=== PATIENT | female | born 1985 | race Caucasian/White ===

== ENCOUNTER 2017-01-01 11:53 | Emergency (ER) | payer MEDICAID ==
[~2017-01-01] VITALS: Ht 175.3 cm; Wt 86.9 kg
[2017-01-01 12:15] VITALS: BP 121/73
[2017-01-01] MEDS ORDERED: ACETAMINOPHEN 500 MG TABLET ONE (12:49)
[2017-01-01] MEDS ORDERED: ACETAMINOPHEN 500 MG TABLET PO ONE (13:00)
[2017-01-01] MEDS ORDERED: KETOROLAC 30 MG/1 ML ONE (13:50)
[2017-01-01] MEDS ORDERED: DIAZEPAM 5 MG TABLET ONE (13:50)
[2017-01-01] MEDS ORDERED: KETOROLAC 30 MG/1 ML IM ONE (14:00)
[2017-01-01] MEDS ORDERED: DIAZEPAM 5 MG TABLET PO ONE (14:00)
== END 2017-01-01 14:13 | disposition home or self-care (01) ==
LOC: ED 14:07
DX: S39.012A Strain of muscle, fascia and tendon of lower back, initial encounter (principal); I10 Essential (primary) hypertension; X50.9XXA Other and unspecified overexertion or strenuous movements or postures, initial encounter; Y93.89 Activity, other specified; Y92.89 Other specified places as the place of occurrence of the external cause; Y99.8 Other external cause status; Z88.6 Allergy status to analgesic agent; Z88.1 Allergy status to other antibiotic agents
CPT/HCPCS: 36415; 84703; 99283

== ENCOUNTER 2018-05-22 18:27 | Emergency (ER) | payer MEDICAID ==
[~2018-05-22] VITALS: Ht 175.3 cm; Wt 76.5 kg
[2018-05-22] MEDS ORDERED: ACETAMINOPHEN 500 MG TABLET ONE (19:10)
[2018-05-22 19:23] LABS: BASOPHILS # (AUTO) 0.04 x10^3/uL (0-0.1); BASOPHILS % (AUTO) 1 % (0-1); EOSINOPHILS % (AUTO) 3 % (1-7); LYMPHOCYTES # (AUTO) 2.09 x10^3/uL (1-3.4); LYMPHOCYTES % (AUTO) 35 % (22-44); MD NO; MEAN CORPUSCULAR HEMOGLOBIN 29.6 pg (27.0-34.8); MEAN CORPUSCULAR HGB CONC 33.5 g/dL (32.4-35.8); MEAN CORPUSCULAR VOLUME 88.4 fL (80-100); MEAN PLATELET VOLUME 7.5 fL (7.4-10.4); MONOCYTES # (AUTO) 0.57 x10^3/uL (0.2-0.8); MONOCYTES % (AUTO) 9 % (2-9); NEUTROPHILS # (AUTO) 3.15 x10^3/uL (1.8-6.8); NEUTROPHILS % (AUTO) 52 % (42-75); PLATELET COUNT 305 x10^3/uL (130-400); RED BLOOD COUNT 4.21 x10^6/uL (3.82-5.3); RED CELL DISTRIBUTION WIDTH 15.3 % (9.6-15.2)
[2018-05-22] MEDS ORDERED: ACETAMINOPHEN 500 MG TABLET PO ONE (19:30)
[2018-05-22 19:35] LABS: ALANINE AMINOTRANSFERASE 16 U/L (12-78); ALBUMIN 3.2 g/dL (3.4-5.0); ANION GAP 6 mmol/L (5-15); CALCIUM 7.7 mg/dL (8.5-10.1); CHLORIDE 112 mmol/L (98-107); CREATININE 0.79 mg/dL (0.55-1.02)
[2018-05-22 19:37] LABS: MICROSCOPIC NOT IND
[2018-05-22 19:39] LABS: ALKALINE PHOSPHATASE 68 U/L (45-117); BILIRUBIN,TOTAL 0.3 mg/dL (0.2-1.0); TOTAL PROTEIN 6.2 g/dL (6.4-8.2)
[2018-05-22 19:41] LABS: CULTURE INDICATED? NO
[2018-05-22 20:08] VITALS: BP 112/65
== END 2018-05-22 20:12 | disposition home or self-care (01) ==
LOC: ED 20:08
DX: R10.11 Right upper quadrant pain (principal); R10.31 Right lower quadrant pain; K08.89 Other specified disorders of teeth and supporting structures; H92.02 Otalgia, left ear; I10 Essential (primary) hypertension; F17.200 Nicotine dependence, unspecified, uncomplicated; J45.909 Unspecified asthma, uncomplicated; Z88.5 Allergy status to narcotic agent; Z88.2 Allergy status to sulfonamides
CPT/HCPCS: 36415; 80053; 81003; 84703; 85025; 99284

== ENCOUNTER 2020-05-13 16:36 | Emergency (ER) | payer MEDICAID ==
[~2020-05-13] VITALS: Ht 175.3 cm; Wt 77.3 kg
[2020-05-13 17:43] LABS: HCG UR SG 1.028 (1.003-1.030)
[2020-05-13 17:45] LABS: MICROSCOPIC INDICATED
[2020-05-13 18:33] LABS: CLUE CELLS NONE SEEN (NONE SEEN); WET PREP WBCS MODERATE (FEW)
[2020-05-13 18:46] VITALS: BP 139/90
[2020-05-13] MEDS ORDERED: metroNIDAZOLE 500 MG TABLET ONE (18:47)
[2020-05-13] MEDS ORDERED: metroNIDAZOLE 500 MG TABLET PO ONE (19:00)
== END 2020-05-13 19:43 | disposition home or self-care (01) ==
LOC: ED 19:15
DX: N89.8 Other specified noninflammatory disorders of vagina (principal); A59.01 Trichomonal vulvovaginitis; I10 Essential (primary) hypertension; J45.909 Unspecified asthma, uncomplicated; F17.200 Nicotine dependence, unspecified, uncomplicated
CPT/HCPCS: 81001; 81025; 87086; 87147; 87210; 87491; 87591; 87808; 99283; 99284

== ENCOUNTER 2020-07-07 01:40 | Emergency (ER) | payer MEDICAID ==
[~2020-07-07] VITALS: Ht 175.3 cm; Wt 79.4 kg
--- NOTE | 2020-07-07 02:21 | NUR ---
WALKS TO ROOM, UNDRESSING. NAD.
[2020-07-07] MEDS ORDERED: AZITHROMYCIN 500 MG TABLET PO ONE (03:00)
[2020-07-07] MEDS ORDERED: CEFTRIAXONE 250 MG IM ONE (03:00)
[2020-07-07] MEDS ORDERED: HYDROcodone/APAP 5/325 TABLET PO ONE (03:00)
[2020-07-07] MEDS ORDERED: AZITHROMYCIN 500 MG TABLET ONE (03:02)
[2020-07-07] MEDS ORDERED: CEFTRIAXONE 250 MG ONE (03:02)
[2020-07-07] MEDS ORDERED: HYDROcodone/APAP 5/325 TABLET ONE (03:03)
--- NOTE | 2020-07-07 03:34 | NUR ---
PT DRESSED, WAITING FOR DISPO PAPERS.
[2020-07-07 03:47] LABS: MICROSCOPIC INDICATED
[2020-07-07 03:52] LABS: HCG UR SG 1.026 (1.003-1.030)
--- NOTE | 2020-07-07 03:56 | NUR ---
WAITING FOR DISPO.
[2020-07-07 04:05] LABS: CLUE CELLS NONE SEEN (NONE SEEN); WET PREP WBCS MODERATE (FEW)
[2020-07-07 04:22] VITALS: BP 122/71
== END 2020-07-07 04:36 | disposition home or self-care (01) ==
LOC: ED 02:13
DX: N30.00 Acute cystitis without hematuria (principal); A59.01 Trichomonal vulvovaginitis; J45.909 Unspecified asthma, uncomplicated; I10 Essential (primary) hypertension; F17.210 Nicotine dependence, cigarettes, uncomplicated
CPT/HCPCS: 81001; 81025; 87086; 87210; 87491; 87591; 87808; 96372; 99284; 99406; J0696; 99283

== ENCOUNTER 2021-01-05 21:09 | Emergency (ER) | payer MEDICAID ==
[~2021-01-05] VITALS: Ht 175.3 cm; Wt 80.0 kg
[2021-01-05] MEDS ORDERED: SODIUM CHLORIDE FLUSH 10ML SYR IVF ONE (21:30)
[2021-01-05 21:39] LABS: BASOPHILS % (AUTO) 1 % (0-1); EOSINOPHILS % (AUTO) 1 % (1-7); LYMPHOCYTES % (AUTO) 13 % (22-44); MEAN CORPUSCULAR HEMOGLOBIN 28.1 pg (27.0-34.8); MEAN CORPUSCULAR HGB CONC 32.9 g/dL (32.4-35.8); MEAN PLATELET VOLUME 6.8 fL (7.4-10.4); MONOCYTES % (AUTO) 4 % (2-9); NEUTROPHILS % (AUTO) 81 % (42-75); PLATELET COUNT 361 x10^3/uL (130-400); RED BLOOD COUNT 5.09 x10^6/uL (3.82-5.3)
[2021-01-05 21:42] LABS: MD NO
[2021-01-05 21:51] LABS: ALANINE AMINOTRANSFERASE 20 U/L (12-78); ALBUMIN 3.8 g/dL (3.4-5.0); ANION GAP 3 mmol/L (5-15); CALCIUM 8.8 mg/dL (8.5-10.1); CHLORIDE 107 mmol/L (98-107); CREATININE 0.81 mg/dL (0.55-1.02)
[2021-01-05 21:56] LABS: ALKALINE PHOSPHATASE 97 U/L (45-117); BILIRUBIN,TOTAL 0.8 mg/dL (0.2-1.0); TOTAL PROTEIN 7.2 g/dL (6.4-8.2); TROPONIN I < 0.015 ng/mL (0.000-0.045)
[2021-01-05 22:05] VITALS: BP 169/109
== END 2021-01-05 22:53 ==
LOC: ED 21:30
DX: R07.2 Precordial pain (principal); R42 Dizziness and giddiness; I10 Essential (primary) hypertension; R07.89 Other chest pain; J45.909 Unspecified asthma, uncomplicated; F17.210 Nicotine dependence, cigarettes, uncomplicated
CPT/HCPCS: 36415; 71045; 80053; 83880; 84484; 84703; 85025; 93005; 99285; 99406

== ENCOUNTER 2021-02-05 02:37 | Emergency (ER) | payer MEDICAID ==
[~2021-02-05] VITALS: Ht 175.3 cm; Wt 80.0 kg
[2021-02-05 02:57] VITALS: BP 132/87
[2021-02-05] MEDS ORDERED: ACETAMINOPHEN 500 MG TABLET PO ONE (03:00)
[2021-02-05] MEDS ORDERED: ACETAMINOPHEN 500 MG TABLET ONE (03:02)
[2021-02-05 03:24] LABS: MICROSCOPIC INDICATED
[2021-02-05] MEDS ORDERED: CEFTRIAXONE 1,000 MG IM ONE (03:30)
[2021-02-05] MEDS ORDERED: DOXYCYCLINE 100MG TABLET PO ONE (03:30)
[2021-02-05 03:32] LABS: CLUE CELLS NONE SEEN (NONE SEEN)
[2021-02-05 03:34] LABS: WET PREP WBCS MODERATE (FEW)
[2021-02-05] MEDS ORDERED: CEFTRIAXONE 1,000 MG ONE (03:34)
[2021-02-05] MEDS ORDERED: DOXYCYCLINE 100MG TABLET ONE (03:35)
[2021-02-05] MEDS ORDERED: IBUPROFEN 800 MG TABLET PO ONE (04:00)
== END 2021-02-05 04:04 | disposition home or self-care (01) ==
LOC: ED 03:28
DX: K02.9 Dental caries, unspecified (principal); K08.89 Other specified disorders of teeth and supporting structures; N72 Inflammatory disease of cervix uteri; F17.210 Nicotine dependence, cigarettes, uncomplicated; N89.8 Other specified noninflammatory disorders of vagina; I10 Essential (primary) hypertension; J45.909 Unspecified asthma, uncomplicated; Z88.2 Allergy status to sulfonamides; Z88.5 Allergy status to narcotic agent
CPT/HCPCS: 36415; 81001; 84703; 87077; 87086; 87184; 87186; 87210; 87491; 87591; 87808; 96372; 99284; 99406; J0696

== ENCOUNTER 2021-02-07 18:17 | Emergency (ER) | payer MEDICAID ==
[~2021-02-07] VITALS: Ht 175.3 cm; Wt 89.3 kg
[2021-02-07 19:22] LABS: BASOPHILS % (AUTO) 1 % (0-1); EOSINOPHILS % (AUTO) 3 % (1-7); LYMPHOCYTES % (AUTO) 22 % (22-44); MEAN CORPUSCULAR HEMOGLOBIN 29.3 pg (27.0-34.8); MEAN CORPUSCULAR HGB CONC 34.2 g/dL (32.4-35.8); MEAN PLATELET VOLUME 7.4 fL (7.4-10.4); MONOCYTES % (AUTO) 8 % (2-9); NEUTROPHILS % (AUTO) 66 % (42-75); PLATELET COUNT 355 x10^3/uL (130-400); RED BLOOD COUNT 4.71 x10^6/uL (3.82-5.3); RED CELL DISTRIBUTION WIDTH 15.4 % (9.6-15.2)
[2021-02-07 19:35] LABS: ALANINE AMINOTRANSFERASE 25 U/L (12-78); ALBUMIN 3.2 g/dL (3.4-5.0); ANION GAP 5 mmol/L (5-15); CALCIUM 8.5 mg/dL (8.5-10.1); CHLORIDE 111 mmol/L (98-107); CREATININE 0.73 mg/dL (0.55-1.02)
[2021-02-07 19:37] LABS: ALKALINE PHOSPHATASE 80 U/L (45-117); BILIRUBIN,TOTAL 0.2 mg/dL (0.2-1.0); TOTAL PROTEIN 6.6 g/dL (6.4-8.2)
[2021-02-07 20:04] VITALS: BP 125/86
--- NOTE | 2021-02-07 20:32 | NUR ---
Patient given discharge instructions and they have confirmed that they understand the instructions. Patient ambulatory with steady gait.
== END 2021-02-07 20:33 | disposition home or self-care (01) ==
LOC: ED 20:09
DX: N30.00 Acute cystitis without hematuria (principal); Z76.0 Encounter for issue of repeat prescription; I10 Essential (primary) hypertension
CPT/HCPCS: 36415; 80053; 85025; 99283

== ENCOUNTER 2021-03-17 05:26 | Emergency (ER) | payer MEDICAID ==
[~2021-03-17] VITALS: Ht 175.3 cm; Wt 80.0 kg
--- NOTE | 2021-03-17 05:30 | NUR ---
INITIAL PT CONTACT. PT BIBA C/O LEFT UPPER DENTAL PAIN AND SWELLING X1 DAY. PT SITTING UPRIGHT ON GURNEY, NADN, VSS. PT DENIES ANY NEEDS AT THIS TIME. CALL LIGHT AND PERSONAL BELONGINGS WITHIN REACH, AWAITING ERP
[2021-03-17] MEDS ORDERED: HYDROcodone/APAP 5/325 TABLET ONE (05:51)
[2021-03-17] MEDS ORDERED: HYDROcodone/APAP 5/325 TABLET PO ONE (06:00)
[2021-03-17 06:21] LABS: BASOPHILS % (AUTO) 1 % (0-1); EOSINOPHILS % (AUTO) 1 % (1-7); LYMPHOCYTES % (AUTO) 13 % (22-44); MEAN CORPUSCULAR HEMOGLOBIN 28.9 pg (27.0-34.8); MEAN CORPUSCULAR HGB CONC 33.5 g/dL (32.4-35.8); MEAN PLATELET VOLUME 7.4 fL (7.4-10.4); MONOCYTES % (AUTO) 7 % (2-9); NEUTROPHILS % (AUTO) 78 % (42-75); PLATELET COUNT 315 x10^3/uL (130-400); RED CELL DISTRIBUTION WIDTH 14.6 % (9.6-15.2)
[2021-03-17] MEDS ORDERED: KETOROLAC 30 MG/1 ML ONE (06:29)
[2021-03-17] MEDS ORDERED: KETOROLAC 30 MG/1 ML IVPush ONE (06:30)
--- NOTE | 2021-03-17 06:33 | NUR ---
PT TO CT
--- NOTE | 2021-03-17 06:46 | NUR ---
REPORT TO KATT LAWLER
--- NOTE | 2021-03-17 07:12 | NUR ---
PATIENT LAYING IN GURNEY WITH EYES CLOSED, RESP EVEN AND UNLABORED, CONNECTED TO MONITOR, VSS, CALL LIGHT WITHIN REACH. WAITING FOR CT TO RESULT.
--- NOTE | 2021-03-17 08:02 | NUR ---
PATIENT RESTING IN [facility], CONNECTED TO MONITOR, VSS, CALL LIGHT WITHIN REACH, NO FURTHER NEEDS AT THIS TIME. PATIENT UP FOR RECHECK.
[2021-03-17] MEDS ORDERED: CLINDAMYCIN 300 MG CAPSULE PO ONE (08:30)
[2021-03-17] MEDS ORDERED: CLINDAMYCIN 300 MG CAPSULE ONE (08:48)
[2021-03-17 08:53] VITALS: BP 103/58
--- NOTE | 2021-03-17 09:03 | NUR ---
IV removed with tip intact. Patient given discharge instructions and prescriptions and they have confirmed that they understand the instructions. Patient ambulatory with steady gait. NAD, all questions answered appropriately, denies additional needs at this time. No personal belongings left in room after discharge. Taxi voucher provided.
[2021-03-17] MEDS ORDERED: OMNIPAQUE 350 MG/ML, 100ML BOTTLE ONE (12:37)
== END 2021-03-17 09:04 | disposition home or self-care (01) ==
LOC: ED 07:30
DX: K04.7 Periapical abscess without sinus (principal); L03.211 Cellulitis of face; I10 Essential (primary) hypertension; J45.909 Unspecified asthma, uncomplicated; F17.200 Nicotine dependence, unspecified, uncomplicated
CPT/HCPCS: 36415; 70487; 85025; 96374; 99285; J1885; Q9967